=== PATIENT | male | born 1985 | race Two or more races ===

== ENCOUNTER 2016-08-05 21:05 | Emergency (ER) | payer MEDICAID ==
[~2016-08-05] VITALS: Ht 180.3 cm; Wt 79.4 kg
[~2016-08-05 21:05] MED LIST: ANTI-DEPRESSANT
[2016-08-06] MEDS ORDERED: cefTRIAXone SOD 1,000 MG VL IM ONE (00:30)
[2016-08-06] MEDS ORDERED: LIDOCAINE 1% HCL (LOCAL ANESTH.) INJ 20ML MDV ONE (00:43)
[2016-08-06] MEDS ORDERED: LIDOCAINE HCL 1 % PF INJ 2ML AMP IJ ONE (01:00)
[2016-08-06 01:21] VITALS: BP 128/84
== END 2016-08-06 01:20 | disposition home or self-care (01) ==
LOC: ER 21:23
DX: S81.852A Open bite, left lower leg, initial encounter (principal); W55.01XA Bitten by cat, initial encounter; Y93.89 Activity, other specified; Y99.8 Other external cause status; Y92.89 Other specified places as the place of occurrence of the external cause
CPT/HCPCS: 96372; 99283; J0696; J2001

== ENCOUNTER 2018-01-19 01:22 | Emergency (ER) | payer MEDICAID ==
[~2018-01-19] VITALS: Ht 180.3 cm; Wt 72.6 kg
[2018-01-19 01:43] VITALS: BP 164/99
[2018-01-19 02:13] LABS: Basophils # (auto) 0 uL; Basophils % (auto) 0.6 % (0.0-2.0); Eosinophils # (auto) 0.1 uL; Eosinophils % (auto) 0.7 % (0.0-7.0); Hematocrit 48.9 % (41.0-53.0); Hemoglobin 16.6 g/dL (13.5-17.5); Lymphocytes # (auto) 1.9 uL; Lymphocytes % (auto) 26.7 % (10.0-50.0); Mean Corpuscular Hemoglobin 32.3 pg (28.0-32.0); Mean Corpuscular Hgb Conc. 33.9 g/dL (32.0-36.0); Mean Corpuscular Volume 95.3 fL (80.0-100.0); Monocytes # (auto) 0.7 uL; Monocytes % (auto) 10.2 % (0.0-12.0); Neutrophils # (auto) 4.4 uL; Neutrophils % (auto) 61.8 % (37.0-80.0); Nucleated Red Blood Cells % 0.1 %; Platelet Count (auto) 255 10^3/uL (140-450); Red Blood Cells 5.13 10^6/uL (4.5-5.90); Red Cell Distribution Width 13.1 % (11.8-14.3); White Blood Cell 7.2 10^3/uL (4.4-10.8)
[2018-01-19 02:33] LABS: Alcohol, Urine < 3.0 mg/dL (0-5); Amphetamine Screen, Urine NEGATIVE (NEGATIVE); Barbiturate Scree,Urine NEGATIVE (NEGATIVE); Benzodiazephine Screen, Urine NEGATIVE (NEGATIVE); Cannabinoid Screen, Urine NEGATIVE (NEGATIVE); Opiate Scree,Urine NEGATIVE (NEGATIVE); Phencyclidine Screen, Urine NEGATIVE (NEGATIVE)
[2018-01-19 02:33] LABS: Albumin 4.5 g/dL (3.4-5.0); BUN/Creatinine Ratio 11.5; Calcium 8.6 mg/dL (8.5-10.1); Potassium 3.8 mmol/L (3.5-5.1)
[2018-01-19 02:35] LABS: Bilirubin, Total 0.7 mg/dL (0.2-1.0); Total Protein 8.6 g/dL (6.4-8.2)
[2018-01-19 02:37] LABS: Urine Bacteria NONE SEEN /hpf (None Seen); Urine Blood Negative /uL (Negative); Urine Specific Gravity 1.013 (1.001-1.035); Urine WBC <1 /hpf (0 - 3)
[2018-01-19 02:43] LABS: Cocaine Screen, Urine NEGATIVE (NEGATIVE)
== END 2018-01-19 04:15 | disposition left against medical advice (07) ==
LOC: ER 01:22
DX: G47.00 Insomnia, unspecified (principal); Z53.21 Procedure and treatment not carried out due to patient leaving prior to being seen by health care provider
CPT/HCPCS: 36415; 80053; 80307; 81001; 83036; 84443; 85025

== ENCOUNTER 2024-06-09 11:10 | Emergency (ER) | payer MEDICAID ==
[~2024-06-09] VITALS: Ht 180.3 cm; Wt 75.1 kg
--- NOTE | 2024-06-09 12:32 | ED.PDOC ---
History of Present Illness HPI Comments A 38 YEAR OLD MALE PRESENTS TO THE ED WITH COMPLAINT OF MEDICATION REFILL. PATIENT STATES HE HAS A HISTORY OF INSOMNIA AND USUALLY TAKES LUNESTA 3 MG BEFORE BEDTIME, BUT RAN OUT OF THIS MEDICATION. PATIENT IS REQUESTING A MEDICATION REFILL FOR HIS LUNESTA 3 MG. PATIENT DENIES SI/HI, FEVER, CHILLS, SHORTNESS OF BREATH, CHEST PAIN, ABDOMINAL PAIN, NAUSEA, VOMITING, HEADACHE, OR OTHER COMPLAINTS. NO OTHER SYMPTOMS OR MODIFYING FACTORS AT THIS TIME. PATIENT IS ALERT, ORIENTED X 4, AND HAS STEADY GAIT. Chief Complaint: Anxiety Time Seen by MD: 11:52 Primary Care Provider: BARBARA Reviewed Notes: Nurses Notes, Medications, Allergies Allergies: Coded Allergies: NO KNOWN ALLERGIES (Unverified , 09/16/11) Home Meds Reported Medications [Anti-Depressant] No Conflict Check 09/16/11 Information Source: Patient Mode of Arrival: Ambulatory Severity: None Timing: Days Duration: Since onset, Days Prehospital treatment: None Medication Refill: Ran out of Medication, For: Other (MEDICATION REFILL) Past Medical History PAST MEDICAL HISTORY: Anxiety, Depression Past Medical History (Other): INSOMNIA Surgical History: Denies all surgeries Family History Family History: Reviewed,noncontributory to illness Social History Smoker: Non-Smoker Alcohol: Denies ETOH Use Drugs: Denies Drug Use Lives In: Home Constitutional: reports: others (ANXIOUS ); denies: chills, diaphoresis, fatigue, fever, malaise, sweats, weakness EENTM: denies: blurred vision, double vision, ear bleeding, ear discharge, ear drainage, ear pain, ear ringing, eye pain, eye redness, hearing loss, mouth pain, mouth swelling, nasal discharge, nose bleeding, nose congestion, nose pain, photophobia, tearing, throat pain, throat swelling, voice changes, others Respiratory: denies: cough, hemoptysis, orthopnea, SOB at rest, shortness of breath, SOB with excertion, stridor, wheezing, others Cardiovascular: denies: chest pain, dizzy spells, diaphoresis, Dyspnea on exertion, edema, irregular heart beat, left arm pain, lightheadedness, palpitations, PND, syncope, others Gastrointestinal: denies: abdomen distended, abdominal pain, blood streaked bowels, constipated, diarrhea, dysphagia, difficulty swallowing, hematemesis, melena, nausea, poor appetite, poor fluid intake, rectal bleeding, rectal pain, vomiting, others Genitourinary: denies: burning, dysuria, flank pain, frequency, hematuria, incontinence, penile discharge, penile sore, pain, testicle pain, testicle swelling, urgency, others Neurological: denies: dizziness, fainting, headache, left sided numbness, left sided weakness, numbness, paresthesia, pre-existing deficit, right sided numbness, right sided weakness, seizure, speech problems, tingling, tremors, weakness, others Musculoskeletal: denies: back pain, gout, joint pain, joint swelling, muscle pain, muscle stiffness, neck pain, others Integumetry: denies: bruises, change in color, change in hair/nails, dryness, laceration, lesions, lumps, rash, wounds, others Allergic/Immunocompromised: denies: Difficulty Healing, Frequent Infections, Hives, Itching, others Hematologic/Lymphatic: denies: anemia, blood clots, easy bleeding, easy bruising, swollen glands, others Endocrine: denies: excessive hunger, excessive sweating, excessive thirst, excessive urination, flushing, intolerance to cold, intolerance to heat, unexplained weight gain, unexplained weight loss, others Psychiatric: denies: anxiety, bipolar disorder, depression, hopeless, panic d isorder, schizophrenia, sleepless, suicidal, others All Other Systems: Reviewed and Negative Physical Exam General Appearance: No Apparent Distress, Normal, Other (ANXIOUS ) HEENT: Normal ENT Inspection, PERRL/EOMI, Pharynx Normal, TMs Normal Neck: Full Range of Motion, Non-Tender, Normal, Normal Inspection Respiratory: Chest Non-Tender, Lungs Clear, No Accessory Muscle Use, No Respiratory Distress, Normal Breath Sounds Cardiovascular: No Edema, No JVD, No Murmur, No Gallop, Normal Peripheral Pulses, Regular Rate/Rhythm Breast Exam: Deferred Gastrointestinal: No Organomegaly, Non Tender, No Pulsatile Mass, Normal Bowel Sounds, Soft Genitalia: Deferred Pelvic: Deferred Rectal: Deferred Extremities: No calf tenderness, Normal capillary refill, Normal inspection, Normal range of motion, Non-tender, No pedal edema Musculoskeletal : Apperance: Normal Neurologic: Alert, corrosion control specialist II-XII nml as Tested, No Motor Deficits, Normal Affect, Normal Mood, No Sensory Deficits Cerebellar Function: Normal Reflexes: Normal Skin: Dry, Normal Color, Warm Peripheral Pulses: 2+ carotid (R), 2+ carotid (L) Lymphatic: No Adenopathy Was a procedure done? Was a procedure done?: No Differential Dx Considerations may include: MEDICATION REFILL, HISTORY OF INSOMNIA X-Ray, Labs, Meds, VS Vital Signs Date Time Temp Pulse Resp B/P (MAP) Pulse Ox O2 Delivery O2 Flow Rate FiO2 06/09/24 13:01 83 20 97 Room Air 06/09/24 13:01 98.3 83 20 117/82 (94) 97 98.3 06/09/24 12:01 98.3 83 20 117/82 (94) 97 X-Ray, Labs, Meds, VS Comment EXTERNAL MEDICAL RECORDS REVIEWED: [NONE] INDEPENDENT HISTORIANS: [NONE] SOCIAL DETERMINANTS OF HEALTH: [NONE] LABS ORDERED: NONE REVIEWED AND INTERPRETED RESULTS: NONE IMAGING ORDERED: NONE TREATMENTS ORDERED: NONE PROCEDURES PERFORMED: NONE CRITICAL CARE TIME: NONE I HAVE DISCUSSED THE PATIENT WITH THE ATTENDING PHYSICIAN DR. GUILLAUME MAGANA AND SHE AGREES WITH THE PATIENT'S PLAN OF CARE AND DISPOSITION. BASED ON HISTORY OF PRESENT ILLNESS, AND PHYSICAL EXAM, PATIENT WILL BE DISCHARGED HOME. DISCUSSED PLAN FOR DISCHARGE HOME WITH RX [LUNESTA 3MG]. MEDICATION WARNINGS GIVEN. SHARED DECISION MAKING: PATIENT INSTRUCTED TO FOLLOW UP WITH PRIMARY CARE PROVIDER IN 1-2 DAYS FOR RE-EVALUATION OF SYMPTOMS. PATIENT VERBALIZES UNDERSTANDING TO RETURN TO ED FOR NEW OR WORSENING SYMPTOMS OR IF FOLLOW UP WITH PCP CANNOT BE OBTAINED. PATIENT FEELS COMFORTABLE GOING HOME AT THIS TIME. ALL QUESTIONS ADDRESSED AT TIME OF DISCHARGE. Time of 1ST Reevaluation: 13:11 Reevaluation 1ST: Improved Patient Education/Counseling: Diagnosis, Treatment, Need For Follow Up Family Education/Counseling: Diagnosis, Treatment, Need For Follow Up Medical Screening: No EMC Exist At This Time Departure 1 Departure Time of Disposition: 13:12 Impression: Primary Impression: Encounter for medication refill Additional Impression: Hx of insomnia Disposition: 01 HOME / SELF CARE / HOMELESS Condition: Stable Additional Instructions: FOLLOW-UP WITH PCP IN 1 TO 2 DAYS. TAKE MEDICATIONS PRESCRIBED. RETURN TO ED FOR ANY NEW OR WORSENING SYMPTOMS. Discharged With: Self Critical Care Note Critical Care Time?: No Stability Stability form required: No I personally scribed for MIKIE BAR ([email or web address]) on 06/09/24 at 12:32. Electronically submitted by Arturo Miner ([email or web address]). MIKIE BAR Jun 09, 2024 12:32
[2024-06-09] MEDS ORDERED: ESZO2TAB24 PO (12:51)
[2024-06-09 13:01] VITALS: BP 117/82; PULSE 83; RESP 20; TEMP 98.3; O2SAT 97
== END 2024-06-09 13:11 | disposition home or self-care (01) ==
LOC: ER 11:10
DX: G47.00 Insomnia, unspecified (principal); Z76.0 Encounter for issue of repeat prescription

== ENCOUNTER 2024-07-02 18:23 | Emergency (ER) | payer MEDICAID ==
[~2024-07-02] VITALS: Ht 177.8 cm; Wt 70.0 kg
[~2024-07-02 18:23] MED LIST changes: +ESZO2TAB24 PO
--- NOTE | 2024-07-02 18:32 | ED.PDOC ---
Psychiatric HPI Comments 38 y.o male with PMHx of anxiety, depression and insomnia, presents to the ED via EMS for an evaluation of suicidal ideation. EMS reports patient called sister today regarding SI, elaborated plan to kill himself and has previous history of planning but never acting on it. Patient denies HI or physical pain// self harm. Patient admits to occasional use of marijuana. Time Seen by MD: 18:25 Primary Care Provider: BARBARA Mendez Notes: Nurses Notes, Training Lead Notes, Medications, Allergies Information Source: Emergency Med Personnel Mode of Arrival: EMS Severity of Pain: None Severity of Mental Status: Moderate Severity of Symptoms: Moderate Timing: Hours Duration: Since onset Presents with: Depression, Anxiety, Suicidal Ideation Circumstance: Medical Clearance Current substance abuse: None Stressors: None History of: Depression, Anxiety Associated signs and symptoms: Depression, Anxiety Past Medical History PAST MEDICAL HISTORY: Anxiety, Depression Past Medical History (Other): insomnia Surgical History: Denies all surgeries Family History Family History: Reviewed,noncontributory to illness Social History Smoker: Non-Smoker Alcohol: Denies ETOH Use Drugs: Marijuana Lives In: Home Constitutional: denies: chills, diaphoresis, fatigue, fever, malaise, sweats, weakness, others EENTM: denies: blurred vision, double vision, ear bleeding, ear discharge, ear drainage, ear pain, ear ringing, eye pain, eye redness, hearing loss, mouth pain, mouth swelling, nasal discharge, nose bleeding, nose congestion, nose pain, photophobia, tearing, throat pain, throat swelling, voice changes, others Respiratory: denies: cough, hemoptysis, orthopnea, SOB at rest, shortness of breath, SOB with excertion, stridor, wheezing, others Cardiovascular: denies: chest pain, dizzy spells, diaphoresis, Dyspnea on exertion, edema, irregular heart beat, left arm pain, lightheadedness, palpitations, PND, syncope, others Gastrointestinal: denies: abdomen distended, abdominal pain, blood streaked bowels, constipated, diarrhea, dysphagia, difficulty swallowing, hematemesis, melena, nausea, poor appetite, poor fluid intake, rectal bleeding, rectal pain, vomiting, others Genitourinary: denies: burning, dysuria, flank pain, frequency, hematuria, incontinence, penile discharge, penile sore, pain, testicle pain, testicle sw elling, urgency, others Neurological: denies: dizziness, fainting, headache, left sided numbness, left sided weakness, numbness, paresthesia, pre-existing deficit, right sided numbness, right sided weakness, seizure, speech problems, tingling, tremors, weakness, others Musculoskeletal: denies: back pain, gout, joint pain, joint swelling, muscle pain, muscle stiffness, neck pain, others Integumetry: denies: bruises, change in color, change in hair/nails, dryness, laceration, lesions, lumps, rash, wounds, others Allergic/Immunocompromised: denies: Difficulty Healing, Frequent Infections, Hives, Itching, others Hematologic/Lymphatic: denies: anemia, blood clots, easy bleeding, easy bruising, swollen glands, others Endocrine: denies: excessive hunger, excessive sweating, excessive thirst, excessive urination, flushing, intolerance to cold, intolerance to heat, unexplained weight gain, unexplained weight loss, others Psychiatric: reports: anxiety, depression, suicidal; denies: bipolar disorder, hopeless, panic disorder, schizophrenia, sleepless, others All Other Systems: Reviewed and Negative Physical Exam General Appearance: Mild Distress, Other (The patient was somewhat suicidal) HEENT: Normal ENT Inspection, Pharynx Normal, TMs Normal Neck: Full Range of Motion, Non-Tender, Normal, Normal Inspection Respiratory: Chest Non-Tender, Lungs Clear, No Accessory Muscle Use, No Respiratory Distress, Normal Breath Sounds Cardiovascular: No Edema, No JVD, No Murmur, No Gallop, Normal Peripheral Pulses, Regular Rate/Rhythm Breast Exam: Deferred Gastrointestinal: No Organomegaly, Non Tender, No Pulsatile Mass, Normal Bowel Sounds, Soft Genitalia: Deferred Pelvic: Deferred Rectal: Deferred Extremities: No calf tenderness, Normal capillary refill, Normal inspection, Normal range of motion, Non-tender, No pedal edema Musculoskeletal : Apperance: Normal Neurologic: Alert, banking teacher II-XII nml as Tested, No Motor Deficits, No Sensory Deficits, Other (Flat affect) Cerebellar Function: Normal Reflexes: Normal Skin: Dry, Normal Color, Warm Lymphatic: No Adenopathy Was a procedure done? Was a procedure done?: No Psych Differential Dx Psych. Differential Dx: Anxiety, Depression, Suicidal Intoxication Differential Dx: Depression X-Ray, Labs, Meds, VS Vital Signs Date Time Temp Pulse Resp B/P (MAP) Pulse Ox O2 Delivery O2 Flow Rate FiO2 07/02/24 18:32 99 07/02/24 18:32 98.0 120 18 158/99 (118) 99 98.0 Lab Test 07/02/24 18:48 Range/Units Salicylates Level < 3.0 -30 mg/dL Acetaminophen Level < 2.0 L 10.0-20.0 UG/ML Plasma/Serum Blood Alcohol < 3.0 <10 mg/dL The patient's alcohol level as well as acetaminophen level and salicylate level are negative We are contacting the telemedicine psychiatrist The patient was considered to be medically cleared at this time The patient will be signed out to Dr. Monahan Time of 1ST Reevaluation: 18:29 Reevaluation 1ST: Unchanged Patient Education/Counseling: Diagnosis, Treatment, Prognosis Family Education/Counseling: No Family Present Departure 1 Departure Time of Disposition: 20:03 Impression: Primary Impression: Suicidal ideation Disposition: 30 STILL A PATIENT Condition: Fair Critical Care Note Critical Care Time?: No Stability Stability form required: Yes Stable for transfer: Intended for transfer, To designated facility I personally scribed for SIMON DUNCAN MD ([email or web address]) on 07/02/24 at 18:32. Electronically submitted by Adrienne Pierre ([facility]). SIMON DUNCAN MD Jul 02, 2024 18:32
--- NOTE | 2024-07-02 18:37 | ECG ---
[facility] Test Date: 2024-07-02 Test Time: 18:32:42 Pat Name: MANPREET BARKER Department: ED Room: Gender: M Pattern Scratcher: ARSLAN : 1985 Requested By: SIMON DUNCAN Order Number: [id number] Reading MD: Measurements Intervals [place] Rate: 99 P: 58 NC: 166 QRS: -37 QRSD: 86 T: 52 QT: 324 QTc: 416 Interpretive Statements Sinus rhythm Consider right atrial enlargement Left axis deviation Probable right ventricular hypertrophy ST elevation, consider inferior injury Please click the below link to view image of tracing.
[2024-07-02 19:34] LABS: Acetaminophen < 2.0 UG/ML (10.0-20.0); Salicylate < 3.0 mg/dL (-30)
[2024-07-02 19:47] VITALS: PULSE 110; RESP 18; O2SAT 99
[2024-07-02 22:02] LABS: Amphetamine Screen, Urine Neg (NEGATIVE); Barbiturate Scree,Urine Neg (NEGATIVE); Benzodiazephine Screen, Urine Pos (NEGATIVE); Cannabinoid Screen, Urine Pos (NEGATIVE); Cocaine Screen, Urine Neg (NEGATIVE); Opiate Scree,Urine Neg (NEGATIVE); Phencyclidine Screen, Urine Neg (NEGATIVE)
[2024-07-03] MEDS: traZODone HCL 50 MG TAB PO ONE (01:31)
[2024-07-03 08:27] VITALS: BP 126/77; PULSE 77; RESP 18; TEMP 97.9; O2SAT 96
--- NOTE | 2024-07-03 15:51 | DVHINCON2 ---
Date of Service if different f: Jul 03, 2024 Consultation ([facility]) Labs Laboratory Tests Test 07/02/24 18:48 07/02/24 20:25 Salicylates Level < 3.0 mg/dL (-30) Acetaminophen Level < 2.0 UG/ML (10.0-20.0) Plasma/Serum Blood Alcohol < 3.0 mg/dL (<10) Urine Opiates Screen Neg (NEGATIVE) Urine Fentanyl Screen Neg (NEGATIVE) Urine Barbiturates Screen Neg (NEGATIVE) Urine Phencyclidine Screen Neg (NEGATIVE) Urine Amphetamines Screen Neg (NEGATIVE) Urine Benzodiazepines Screen Pos (NEGATIVE) Urine Cocaine Screen Neg (NEGATIVE) Urine Cannabinoids Screen Pos (NEGATIVE) Appetite: Poor Appearance: Stated age Psychomotor activity: WNL Behavioral: Cooperative Eye contact: Appropriate Speech: WNL Affect: Mood Congruent Mood: Anxious Thought processes: Linear/Goal-directed Thought content: WNL Suicidal ideations: Absent Homicidal ideations: Absent Orientation: Person, Place, Time, Situation Memory intact: Recent Intellect: Average Abstractability: WNL Concentration: Adequate Attention: Adequate Judgement: WNL Insight: Fair Vitals Vital Signs Date Time Temp Pulse Resp B/P (MAP) Pulse Ox O2 Delivery O2 Flow Rate FiO2 07/03/24 08:27 97.9 77 16 126/77 (93) 96 97.9 07/03/24 08:27 Room Air* 0 21 Medication adjusted: Yes Diagnosis: unspecified mood disorder, unspecified anxiety disorder, Cannabis use Plan : Patient presently denies suicidal/homicidal, offered vol hospitalization and he declines. He has pending appt with his psychiatrist on July 17 and plans to follow up on this date Discussed to return to ED if having suicidal/homicidal ideation or worsening mood or psychotic symptoms and he verbalized understanding. Continue home med of Lamotrigine 50mg po daily recommend to provide refill of Lunesta 3mg po qhs for insomnia discussed avoidance of substance. recommend to discharge home. History of Present Illness Reason for Consult : suicidal ideation HPI : 38-year-old male with prior hx of depression, anxiety, and insomnia BIB ambulance for suicidal ideation. Patient is evaluated via Telepsychiatry. He reports not sleeping for 4-5 days. He reports lack of sleep has led to intrusive thoughts of not wanting to wake up. He does not want these thoughts and wishes they would go away. Thoughts usually occur as a result of his insomnia. He reports insomnia, depression, and anxiety started in 2007 after moving to [facility] area. He does report recent stressors of mom having a heart attack last summer, his insomnia has worsened. He also reports running out of his medication which helps him sleep about 1-2 weeks ago. He reports prescription of lamotrigine and believes other medication is Zyprexa. He reports being prescribed Zyprexa (unknown dose) but he is using 2 tabs because he cannot sleep with one tablet. As a result, runs out of his medication. He reports pending appt July 17 but needs his medication before then. He denies suicidal/homicidal ideation. He denies auditory/visual hallucinations or paranoid thoughts. He denies hx of noemi. He feels very tired and lethargic due to his lack of sleep. He denies hx of psychosis. He reports poor appetite. per chart review, pt reported use of Lunesta 3mg and received refill here on 06/09/24. Past Psychiatric History : he denies prior 5150holds, psych admissions or suicid e attempts. He reports vising crisis center once per month for anxiety and insomnia. He reports medication trials of Seroquel-made him dizzy. He has used Trazodone in the past with moderate response. He has current outpatient mental health follow up Past Medical History : He denies Social History : He lives with mom. He is not employed. He is single. He reports marijuana use rarely, last one month ago. Toxicology was positive for cannabis and benzos. He denies alcohol use. He denies other substances. He denies Nicotine use. He denies any known family history. BRITTON GONZALEZ DNP Jul 03, 2024 15:51
== END 2024-07-03 16:43 | disposition home or self-care (01) ==
LOC: EDUNIT# 18:23 → ER 18:23 → EDBD 18:23 → ER 07-03 16:43
DX: R45.851 Suicidal ideations (principal); F32.A Depression, unspecified; F41.9 Anxiety disorder, unspecified; G47.00 Insomnia, unspecified
CPT/HCPCS: 36415; 80307; 80320; 80329; 93005